=== PATIENT | male | born 1955 | race African-American/Black ===

== ENCOUNTER 2024-06-02 10:03 | Emergency (ER) | payer MEDICAID, MEDICARE ==
[~2024-06-02] VITALS: Ht 172.7 cm; Wt 80.0 kg
[2024-06-02 10:08] VITALS: BP 149/90; PULSE 108; RESP 18; TEMP 98; O2SAT 99
[2024-06-02] MEDS: LIDOCAINE HCL/PF 1% 10 MG/ML 5ML VIAL INFIL ONE (11:47)
[2024-06-02] MEDS: BACITRACIN ZINC OINT UDPKT TOP ONE (11:47)
[2024-06-02] MEDS: TETANUS, DIPHTHERIA, PERTUSSIS VAC/PF 0.5ML (>10YR OLD) IM ONE (11:49)
[2024-06-02] MEDS ORDERED: NEOM1PAC6 TP (12:02)
[2024-06-02] MEDS ORDERED: AMOX1TAB16 MT (12:02)
== END 2024-06-02 12:05 | disposition home or self-care (01) ==
LOC: ER 10:33
DX: S81.012A Laceration without foreign body, left knee, initial encounter (principal); S50.812A Abrasion of left forearm, initial encounter; I10 Essential (primary) hypertension; W54.0XXA Bitten by dog, initial encounter; Y93.89 Activity, other specified; Y92.89 Other specified places as the place of occurrence of the external cause; Y99.8 Other external cause status
CPT/HCPCS: 99283; 90715; 12001; 90471; J3490

== ENCOUNTER 2024-10-24 16:54 | Emergency (ER) | payer MEDICARE ==
[~2024-10-24] VITALS: Ht 170.2 cm; Wt 86.0 kg
[~2024-10-24 16:54] MED LIST: AMOX1TAB16 MT; NEOM1PAC6 TP
[2024-10-24 16:57] VITALS: O2SAT 96
[2024-10-24] MEDS: METHOCARBAMOL 500MG TABLET PO ONE (18:03)
[2024-10-24] MEDS: KETOROLAC 30MG/ML VIAL IM ONE (18:03)
[2024-10-24] MEDS: TRAMADOL 50MG TABLET PO ONE (19:11)
[2024-10-24 19:20] VITALS: TEMP 36.7; O2SAT 95
[2024-10-24] MEDS ORDERED: METH-653 MT (19:36)
[2024-10-24] MEDS ORDERED: LIDO700A30 TP (19:36)
[2024-10-24] MEDS ORDERED: IBUP-2029 MT (19:36)
[2024-10-24 19:45] VITALS: BP 171/103; PULSE 100; RESP 16
[2024-10-24] MEDS: MORPHINE SULFATE 4 MG/ML INJ (FOR IV/IM USE) IM ONE (19:45)
== END 2024-10-24 19:50 | disposition home or self-care (01) ==
LOC: ER 16:54
DX: M48.061 Spinal stenosis, lumbar region without neurogenic claudication (principal); F17.200 Nicotine dependence, unspecified, uncomplicated; F14.10 Cocaine abuse, uncomplicated; I10 Essential (primary) hypertension; Z79.899 Other long term (current) drug therapy
CPT/HCPCS: 99285; 72131; 96372; J1885; J2270